=== PATIENT | female | born 1985 | race Caucasian/White ===

== ENCOUNTER 2017-08-10 03:30 | Inpatient (IN) | payer MEDICAID, SELFPAY ==
--- NOTE | 2017-08-09 15:45 | PLAC_PTH ---
PATIENT: YANDEL ZHAO LOC: [facility] U#:[id number] AGE/SX: 32/F ROOM: 003 RE08/10/[address]: Dr. Sylvia Cortes, MDDOB: 1985 BED: 1 DIS: 08/12/2017 SPEC #: [id number] RECD: 08/10/17 09:20 STATUS: TONE LUZ #: [id number] KENJI: 08/09/17 15:[address]: Sylvia Cortes DEPT: SURGICAL PATHOLOGY RECD BY: Dimitris Ramos ENTERED: 08/12/17 09:16 SP TYPE: PLACENTA OTHR DR: No Primary Care Phys Tissues: Placenta, NOS Procedures: Surgery Specimen Level V HEADER OPERATION: Vaginal delivery PRE-OP DIAGNOSIS: Precipitous , rule out placental abruption TISSUE SUBMITTED: Placenta MICROSCOPIC DIAGNOSIS Herrera placenta (590 gm): Umbilical cord ? trivascular with early acute funisitis. Placental membranes ? acute chorioamnionitis and acute deciduitis. Placental disc ? increased intraparenchymal fibrin plaques and microcalcifications and Shayne-Gamal change. AM:keila 08/13/17 MICROSCOPIC DESCRIPTION Slides are reviewed. GROSS DESCRIPTION SPECIMEN: PLACENTA / CLINICAL INFORMATION: A. Weight: 2.953 kg B. Gestational Age: 37 weeks C. Sex: Female PLACENTAL WEIGHT (POST FIXATION): 590 gm PLACENTAL DIMENSIONS: 22 x 15 x 3 cm PLACENTAL SHAPE: Usual ovoid PLACENTAL WEIGHT FOR GESTATIONAL AGE: Within 10-99th percentile MEMBRANES - Present A. Insertion: Marginal B. Site of rupture from edge: At edge of placental disc C. Color of membrane: Vásquez-busby D. Abnormalities: None UMBILICAL CORD ? Present, received in two fragments A. Color: Vásquez-busby B. Insertion: Marginal C. Length: 34 cm D. Diameter: 1.5 cm E. Number of vessels: Three F. Abnormalities: None PLACENTAL DISC - Present A. Color of surface: Vásquez-busby B. surface abnormalities: None C. Maternal cotyledons: Intact with minimal tears D. Attached retro placental clot: No clot E. Cut surface: Dark red and spongy F. Lesions: None G. Separate clot: Absent SECTIONS SUBMITTED: 1. Membrane roll and umbilical cord ( end notched) 2. Placental disc, and maternal surfaces 3. Placental disc, and maternal surfaces 4. Placental disc, and maternal surfaces AM:keila 08/12/17 TC:2 CPT: 91265
[2017-08-09 22:44] VITALS: BMI 31.2
[2017-08-09 23:15] LABS: Mucous, Urine 0 SEEN /hpf (<or=2+)
[2017-08-09 23:17] LABS: Color, Urine SEE COMMENT BELOW (Yellow); Glucose, Dipstick Normal (Normal); Ketone-Dipstick Negative (Negative); Leukocyte Esterase-Dipstick 500 /ul (Negative); Nitrite-Dipstick Negative (Negative); Occult Blood-Urine 250 /ul (Negative); Protein-Dipstick 30 mg/dl (Negative); Urine Bilirubin Dipstick Negative (Negative); Urine Clarity Cloudy (Clear); Urine Urobilinogen Normal (Normal)
[2017-08-09 23:26] LABS: Bacteria 1+ /hpf (None Seen); Red Blood Cells-Urine > 100 SEEN /hpf (0-5); Squamous Epithelial Cells - UA 0-5 SEEN /hpf (5-10); White Blood Cells 25-50 SEEN /hpf (0-5)
[2017-08-10] MEDS: Lactated Ringers 1,000 ML 50 ML IV (00:05)
--- NOTE | 2017-08-10 00:17 | PCM.HP.OB ---
- Problem List (1) Term Status: Acute (2) Hematuria Status: Acute Qualifiers: Hematuria type: other microscopic Qualified Code(s): R31.29 - Other microscopic hematuria; R31.2 - Other microscopic hematuria (3) UTI (urinary tract infection) during Status: Acute Qualifiers: Trimester: third trimester Qualified Code(s): O23.43 - Unspecified infection of urinary tract in , third trimester (4) EARLY LABOR Status: Ruled-out History Date of Admission: 08/10/17 Final CARTER: 08/25/17 Final CARTER Source: LMP Gestational age: 37 Weeks and 6 Days History of this : See [facility] record Patient called reporting generalized abdominal cramping and pain this evening, not easily timeable and not constant. Patient denies LOF, denies DFM. On admission ctx q 1-3 minutes noted mildly palpable, irregular and short. UA sent that showed ++ blood, leukocytes and bacteria in urine. Pertinent Past Medical History: See [facility] record Allergies azithromycin Allergy (Verified 08/09/17 22:50) Hives Penicillins Allergy (Verified 08/09/17 22:50) Hives sulfamethoxazole [From Bactrim] Allergy (Verified 08/09/17 22:50) Swelling trimethoprim [From Bactrim] Allergy (Verified 08/09/17 22:50) Swelling tramadol [From Ultram] Adverse Reaction (Verified 08/09/17 22:50) Vomiting Current Medications Acetaminophen (Tylenol) 1,000 mg PO Q8H PRN PRN PRN Reason: PAIN Clindamycin Phosphate (Cleocin) 900 mg in 50 mls @ 75 mls/hr IV Q8 RUDDY Smoking Status: Current some day smoker - Smokes 1-2 cigarettes Alcohol: None - currently Drug Use: none Number of Fetus(es): 1 Review of Systems Constitutional: Denies: Chills, Fever, Weight Change HEENT: Denies: Head Aches, Sinus Congestion, Sinus Drainage Cardiovascular: Denies: Chest Pain, Palpitations Respiratory: Denies: Cough, Shortness of breath at rest, Sputum production Gastrointestinal: Denies: Abdominal Pain, Nausea, Vomiting Genitourinary: Reports: Hematuria. Denies: Dysuria - Reports pelvic pressure Gynecological: Denies: Vaginal bleeding, Vaginal discharge Musculoskeletal: Denies: Joint Pain, Joint Tenderness Skin: Denies: Rash, Wounds Neurological: Denies: Numbness, Tingling, Focal weakness Psychiatric: Denies: Anxiety, Depression, Homicidal Ideations, Suicidal Ideations Hematologic/ Lymphatic: Denies: Easy Bruising, Easy Bleeding Physical Exam General: Alert, Oriented x3, No apparent distress Cardiovascular: Regular rate, Regular Rhythm Lungs: Clear to auscultation Abdomen: Bowel Sounds Present, Non-Distended - generalized abdominal tenderness and CVAT, soft abdomen noted, Gravid, Appropriate for Gestational Age Extremities:: No edema Estimated gestational size: Appropriate for gestational size Presentation: Cephalic Cervix Dilation (cm): 1 Station: -2 Effacement (%): 60 Assessment/Plan Active and Suspected Problems Term (Acute) Hematuria (Acute) UTI (urinary tract infection) during (Acute) 32 y/o @ 37.6 wks, Probable UTI, Rule out Early Labor P: 1) Start IV, give LR fluid bolus 500cc now. 2) CBC with diff and T+S, urine CCMS sent 3) Due to patient's allergies, start Clindamycin 900mg IV q 8 hours for presumptive UTI 4) PO Tylenol 1000mg q 8 hours PRN ordered for pain, if unresolved pain may give Nubain 10mg IV push q 3 hours PRN pending Category I FHT 5) Continuous EFM 6) Expectant management Leah Jorgensen CNM
[2017-08-10 00:28] LABS: Absolute Lymphocyte Count 1.24 X10^3/ul (0.83-4.51); Absolute Neutrophil Count 12.8 X10^3/uL (2.0-7.7); Basophil# 0.03 X10^3/uL; Basophil% 0.2 % (0-1); Eosinophil# 0.04 X10^3/uL; Eosinophils% 0.3 % (0-5); Hemoglobin 9.9 g/dl (12.0-15.0); Lymphocyte # 1.24 X10^3/ul (4.0); Mean Corpuscular Volume 81.7 fL (81-99); Mean Platelet Vol. 10.4 fl (6.2-12.0); Monocyte# 1.32 X10^3/uL; Monocyte% 8.5 % (0-10); Neutrophil # 12.78 X10^3/uL (2.7-7.7); Neutrophil % 82.7 % (47-70); Platelet Count 214 K/mm3 (150-450); RBC Distribution Width CV 14.9 % (11.6-14.6); RBC Distribution Width SD 43.4 fl (35.1-43.9); Red Blood Count 3.67 M/mm3 (4.2-5.4); White Blood Count 15.5 K/mm3 (4.4-11.0)
[2017-08-10 00:31] LABS: POSITIVE COUNT NO; POSITIVE DIFFERENTIAL NO; POSITIVE MORPHOLOGY NO
[2017-08-10] MEDS: Clindamycin 900 MG/50 ML BAG 75 MG IV (00:41)
[2017-08-10] MEDS: Nalbuphine 10 MG/ML Ampul IV (01:09)
--- NOTE | 2017-08-10 02:09 | OB.TRI.PN ---
Progress Notes Date of Service: 08/10/17 Progress Note: Notification from [place] that patient is more comfortable after Nubain 10mg IV push was administered, patient resting now and reporting that ctx have spaced out. First dose of Clindamycin 900mg IV x 1 hung and infusing. Patient family continues to be at bedside providing support. Nursing staff rechecked patient's cervix, found to be 2/90/-2. Category I FHT noted. VSS, patient is Afebrile. WBC = 15, remainder of bloodwork returned thus far in normal limits. Will continue to watch patient closely, if continued cervical change noted and patient becomes >3cm dilated, anticipate to admit patient for labor. Reassess cervix PRN with change in maternal or status. Leah Jorgensen CNM
[2017-08-10] MEDS: Oxytocin 30 units/NS 500 ml 30 UNITS/500 ML IV.SOLN 334 UNITS IV (03:53)
[2017-08-10] MEDS: Oxytocin 30 units/NS 500 ml 30 UNITS/500 ML IV.SOLN 167 UNITS IV (04:23)
--- NOTE | 2017-08-10 04:27 | PCM.OB.VAG ---
- Problem List (1) Term Status: Resolved (2) Hematuria Status: Acute Qualifiers: Hematuria type: other microscopic Qualified Code(s): R31.29 - Other microscopic hematuria; R31.2 - Other microscopic hematuria (3) UTI (urinary tract infection) during Status: Acute Qualifiers: Trimester: third trimester Qualified Code(s): O23.43 - Unspecified infection of urinary tract in , third trimester (4) EARLY LABOR Status: Resolved Vaginal Delivery Maternal Presentation: Active Labor Amniotic Membrane Rupture Type: Spontaneous - Likely occured when patient was in shower, precipitous change from 2cm to 10cm and pushing Amniotic Fluid Description: Clear Final CARTER: 08/25/17 Gestational age: 37 Weeks and 6 Days Date of Procedure: 08/10/17 Pre-Operative Diagnosis: Hematuria with Uterine Irritability d/t presumptive UTI, Early Labor Post-Operative Diagnosis: Precipitous Vaginal Delivery Surgery/ Procedure Performed: Spontaneous Vaginal Delivery Type of Anesthesia: None, Local with 1% lidocaine - For repair afterward Description of Procedure: Patient reported increase in discomfort, reassessment of cervix by nursing staff yielded similar SVE = 2/90/-2. Patient then entered shower and soon after started bearing down. Patient found to be C/C/+1 station. Patient started bearing down strongly with urge. Patient pushed well to over 1st degree lacerated perineum at 0345. initially with a slow cry and respirations, infant dried and stimulated on maternal chest. Mouth and nose bulb suctioned. then started crying a breathing on own at 1 minute. Umbilical cord clamped and cut by FOB by 1 minute of life as the cord stopped pulsing. By 2-3 minutes of life, apneic episode noted in the and baby taken to warmer for assessment and modern languages professor called to room. Cord gases sent. Infant in stable condition now, pulse ox at 100. Apgars assigned per modern languages professor and nursing staff. Placenta delivered spontaneously with maternal effort via Reeder mechanism, intact with 3VC. Placenta to pathology for evaluation d/t precipitous . FF midline @ umbilicus. Pitocin IV per protocol for active management of 3rd stage utilized. EBL = 350 cc. Upon inspection of vaginal vault, 1st degree perineal laceration noted. Repaired in the usual fashion using 3-0 Rapide suture and 1% Lidocaine. Sponge and needle count correct. Baby to breast, bonding and [id number] initiated. Leah Jorgensen CNM Presentation: Vertex, HARLEY Placental Delivery Description: Spontaneous Placenta Disposition: Routine to Lab Cord Vessel Description: 3 Vessels Nuchal Cord Compression: Without compression Cord Gases drawn per routine: ABG, VBG Cord Entanglement: Around neck x 1, loose Estimated Blood Loss: 350 A gender: Female Episiotomy Description: None Laceration: Midline, Perineal Extension/lac, 1st degree Medications given after delivery: IV Pitocin Complications: None
--- NOTE | 2017-08-10 04:44 | OP.PCM_ITS ---
- Problem List (1) Term Status: Resolved (2) Hematuria Status: Acute Qualifiers: Hematuria type: other microscopic Qualified Code(s): R31.29 - Other microscopic hematuria; R31.2 - Other microscopic hematuria (3) UTI (urinary tract infection) during Status: Acute Qualifiers: Trimester: third trimester Qualified Code(s): O23.43 - Unspecified infection of urinary tract in , third trimester (4) EARLY LABOR Status: Resolved Vaginal Delivery Maternal Presentation: Active Labor Amniotic Membrane Rupture Type: Spontaneous - Likely occured when patient was in shower, precipitous change from 2cm to 10cm and pushing Amniotic Fluid Description: Clear Final CARTER: 08/25/17 Gestational age: 37 Weeks and 6 Days Date of Procedure: 08/10/17 Pre-Operative Diagnosis: Hematuria with Uterine Irritability d/t presumptive UTI , Early Labor Post-Operative Diagnosis: Precipitous Vaginal Delivery Surgery/ Procedure Performed: Spontaneous Vaginal Delivery Type of Anesthesia: None, Local with 1% lidocaine - For repair afterward Description of Procedure: Patient reported increase in discomfort, reassessment of cervix by nursing staff yielded similar SVE = 2/90/-2. Patient then entered shower and soon after started bearing down. Patient found to be C/C/+1 station. Patient started bearing down strongly with urge. Patient pushed well to over 1st degree lacerated perineum at 0345. initially with a slow cry and respirations, dried and stimulated on maternal chest. Mouth and nose bulb suctioned. then started crying a breathing on own at 1 minute. Umbilical cord clamped and cut by FOB by 1 minute of life as the cord stopped pulsing. By 2-3 minutes of life, apneic episode noted in the and baby taken to warmer for assessment and lead mobile developer called to room. Cord gases sent. Infant in stable condition now, pulse ox at 100. Apgars assigned per lead mobile developer and nursing staff. Placenta delivered spontaneously with maternal effort via Reeder mechanism, intact with 3VC. Placenta to pathology for evaluation d/t precipitous . FF midline @ umbilicus. Pitocin IV per protocol for active management of 3rd stage utilized. EBL = 350 cc. Upon inspection of vaginal vault , 1st degree perineal laceration noted. Repaired in the usual fashion using 3-0 Rapide suture and 1% Lidocaine. Sponge and needle count correct. Baby to breast , bonding and [id number] initiated. Leah Jorgensen CNM Presentation: Vertex, HARLEY Placental Delivery Description: Spontaneous Placenta Disposition: Routine to Lab Cord Vessel Description: 3 Vessels Nuchal Cord Compression: Without compression Cord Gases drawn per routine: ABG, VBG Cord Entanglement: Around neck x 1, loose Estimated Blood Loss: 350 Infant A gender: Female Episiotomy Description: None Laceration: Midline, Perineal Extension/lac, 1st degree Medications given after delivery: IV Pitocin Complications: None
[2017-08-10 08:20] VITALS: BP 135/77; PULSE 122; RESP 18; TEMP 37.3; O2SAT 98
[2017-08-10] MEDS: Ciprofloxacin 500 MG Tablet PO ×2 (09:11→21:23)
[2017-08-10] MEDS: 0.9% Saline Lock 10 ML Syringe IV (09:13)
[2017-08-10] MEDS: Ibuprofen 600 MG Tablet PO ×2 (09:51→21:30)
[2017-08-10 10:51] LABS: Amphetamine Urine VISTA NEGATIVE (<1000 ng/mL); Barbiturate Urine VISTA NEGATIVE (< 200 ng/mL); Benzodiazepine Urine VISTA NEGATIVE (< 200 ng/mL); Cocaine Urine VISTA NEGATIVE (< 300 ng/mL); Ecstacy Urine VISTA NEGATIVE (< 500 ng/mL); Methadone Urine VISTA NEGATIVE (< 300 ng/mL); PCP Urine VISTA NEGATIVE (< 25 ng/mL); THC Urine VISTA NEGATIVE (< 50 ng/mL); Vista UDS pH Range 6
[2017-08-10 12:20] VITALS: BP 133/67; PULSE 115; RESP 18; TEMP 36.7; O2SAT 97
[2017-08-10 15:45] VITALS: BP 130/80; PULSE 118; RESP 18; TEMP 37; O2SAT 98
[2017-08-10 21:24] VITALS: BP 145/80; PULSE 120; RESP 16; TEMP 36.9; O2SAT 99
[2017-08-11 00:30] VITALS: BP 117/74; PULSE 100; RESP 16; TEMP 36.6
[2017-08-11 04:40] VITALS: BP 117/78; PULSE 92; RESP 16; TEMP 36.8
[2017-08-11 05:00] LABS: Hematocrit 26.3 % (37-47); Hemoglobin 8.6 g/dl (12.0-15.0); Mean Corp Hgb Conc 32.7 g/gl (32-36); Mean Corpuscular Hgb 27.3 pg (27.0-32.0); Mean Corpuscular Volume 83.5 fL (81-99); Mean Platelet Vol. 10.1 fl (6.2-12.0); Platelet Count 219 K/mm3 (150-450); RBC Distribution Width SD 44.8 fl (35.1-43.9); Red Blood Count 3.15 M/mm3 (4.2-5.4)
[2017-08-11 05:05] LABS: Scan Indicated on CBC? Y/N NO
--- NOTE | 2017-08-11 09:04 | PCM.DCVAG ---
Discharge Diet: No Restrictions Discharge Activity: Return to Normal Activity May resume sexual activity in: 4-6 weeks Lifting Restrictions: No lifting anything more than the baby Call your doctor if you observe: Fever of 101 or Higher, Inability to urinate, Inability to have a bowel movement, Using more than one pad per hour, Uncontrolled pain Additional Instructions: If you experience any of the following, contact your healthcare provider. Bleeding that soaks a pad every hour for 2 hours Fever 100.4 or higher Unrelieved incision or abdominal pain Swelling, redness, discharge or bleeding from your incision or episiotomy site Your incision begins to separate Problems urinating (including inability to urinate or burning while urinating). Visual changes Severe headache Flu-like symptoms Pain or redness in one of both of your breasts Pain, warmth, tenderness or swelling in your legs, especially the calf area Frequent nausea and vomiting Symptoms of depression or anxiety If you experience any of the following, call 911 or go to the nearest Emergency Room. Chest pain Problems breathing Seizure activity Partial or complete paralysis of a body part, slurred speech, weakness or drooping of the face, or a sudden inability to walk or hold your balance Allergies/Adverse Reactions: Allergies azithromycin Allergy (Verified 08/09/17 22:50) Hives Penicillins Allergy (Verified 08/09/17 22:50) Hives sulfamethoxazole [From Bactrim] Allergy (Verified 08/09/17 22:50) Swelling trimethoprim [From Bactrim] Allergy (Verified 08/09/17 22:50) Swelling tramadol [From Ultram] Adverse Reaction (Verified 08/09/17 22:50) Vomiting Medications to take at Discharge Vits [Prenatabs FA] 1 tablet PO DAILY 02/02/17 Ciprofloxacin HCl 500 mg PO BID 1 Days #2 tab 08/11/17 Primary Care Physician: Care Physician,No Primary [Primary Care Provider] - Proposed Discharge Date: 08/12/17
--- NOTE | 2017-08-11 09:13 | DCINST_ITS ---
Discharge Diet: No Restrictions Discharge Activity: Return to Normal Activity May resume sexual activity in: 4-6 weeks Lifting Restrictions: No lifting anything more than the baby Call your doctor if you observe: Fever of 101 or Higher, Inability to urinate, Inability to have a bowel movement, Using more than one pad per hour, Uncontrolled pain Additional Instructions: If you experience any of the following, contact your healthcare provider. * Bleeding that soaks a pad every hour for 2 hours * Fever 100.4 or higher * Unrelieved incision or abdominal pain * Swelling, redness, discharge or bleeding from your incision or episiotomy site * Your incision begins to separate * Problems urinating (including inability to urinate or burning while urinating) . * Visual changes * Severe headache * Flu-like symptoms * Pain or redness in one of both of your breasts * Pain, warmth, tenderness or swelling in your legs, especially the calf area * Frequent nausea and vomiting * Symptoms of depression or anxiety If you experience any of the following, call 911 or go to the nearest Emergency Room. * Chest pain * Problems breathing * Seizure activity * Partial or complete paralysis of a body part, slurred speech, weakness or drooping of the face, or a sudden inability to walk or hold your balance Allergies/Adverse Reactions: Allergies azithromycin Allergy (Verified 08/09/17 22:50) Hives Penicillins Allergy (Verified 08/09/17 22:50) Hives sulfamethoxazole [From Bactrim] Allergy (Verified 08/09/17 22:50) Swelling trimethoprim [From Bactrim] Allergy (Verified 08/09/17 22:50) Swelling tramadol [From Ultram] Adverse Reaction (Verified 08/09/17 22:50) Vomiting Medications to take at Discharge Vits [Prenatabs FA] 1 tablet PO DAILY 02/02/17 Ciprofloxacin HCl 500 mg PO BID 1 Days #2 tab 08/11/17 Primary Care Physician: Care Physician,No Primary [Primary Care Provider] - Proposed Discharge Date: 08/12/17
[2017-08-11 09:15] VITALS: BP 130/79; PULSE 75; RESP 16; TEMP 36.5; O2SAT 100
--- NOTE | 2017-08-11 09:16 | PCM.PN.BLA ---
Progress Note S: admitted to [facility] overnight for bililights for jaundice. Patient and FOB at [facility] bedside. Patient denies any physical issues at this time. Reports that she is not having issues using restroom or with ambulation. Patient denies any urinary issues anymore, she is on day 2 of Cipro prescription for presumed UTI. Urine culture is still pending. Patient reports bleeding is subsiding. O: VSS, Afebrile; Hgb = 8.6, WBC = 15 Nipples without cracks or blisters, no ecchymoses noted Abdomen NT x 4 quadrants, FF midline 2FB below umbilicus +2/4 reflexes in LE, no edema, negative calf tenderness to palpation scant rubra lochia, perineum well approximated A: 32 y/o G1, now P1; PPD #1 s/p precipitous , Normal Course P: 1) Continue treatment for presumptive UTI, Cipro Hcl 500mg PO BID x 3 days total 2) Continue PP orders, encourage pumping of breastmilk if baby unable to latch 3) Anticipate discharge to home tomorrow, consider hospitality room if baby does not get discharge tomorrow Leah Jorgensen CNM
[2017-08-11] MEDS: Ciprofloxacin 500 MG Tablet PO ×2 (09:21→21:57)
--- NOTE | 2017-08-11 09:21 | PN_ITS ---
Progress Note S: admitted to [facility] overnight for bililights for jaundice. Patient and FOB at [facility] bedside. Patient denies any physical issues at this time. Reports that she is not having issues using restroom or with ambulation. Patient denies any urinary issues anymore, she is on day 2 of Cipro prescription for presumed UTI. Urine culture is still pending. Patient reports bleeding is subsiding. O: VSS, Afebrile; Hgb = 8.6, WBC = 15 Nipples without cracks or blisters, no ecchymoses noted Abdomen NT x 4 quadrants, FF midline 2FB below umbilicus +2/4 reflexes in LE, no edema, negative calf tenderness to palpation scant rubra lochia, perineum well approximated A: 32 y/o G1, now P1; PPD #1 s/p precipitous , Normal Course P: 1) Continue treatment for presumptive UTI, Cipro Hcl 500mg PO BID x 3 days total 2) Continue PP orders, encourage pumping of breastmilk if baby unable to latch 3) Anticipate discharge to home tomorrow, consider hospitality room if baby does not get discharge tomorrow Leah Jorgensen CNM
[2017-08-11 13:13] VITALS: BP 120/79; PULSE 105; RESP 16; TEMP 36.7; O2SAT 98
[2017-08-11 22:00] VITALS: BP 125/57; PULSE 88; RESP 16; TEMP 37.2
[2017-08-12 03:30] VITALS: BP 118/75; PULSE 88; RESP 16; TEMP 36.7
[2017-08-12 07:30] VITALS: BP 121/76; PULSE 104; RESP 18; TEMP 36.7; O2SAT 99
[2017-08-12] MEDS: Ciprofloxacin 500 MG Tablet PO (09:33)
--- NOTE | 2017-08-12 10:04 | PCM.PN.OB ---
Patient Problems: Active and Suspected Problems Hematuria (Acute) UTI (urinary tract infection) during (Acute) Subjective: pain well controlled, average lochia. Some cramping. Upset about baby, concerned - Physical Exam General: Alert, Cooperative, No apparent distress Vital Signs Temp Pulse Resp BP Pulse Ox 98.1 F 104 H 18 121/76 H 99 08/12/17 07:30 08/12/17 07:30 08/12/17 07:30 08/12/17 07:30 08/12/17 07:30 Oxygen Delivery Method Room Air Weight: 87.9 kg Body Mass Index (BMI) 31.2 Intake and Output for Last 24 Hours 08/10/17 08/11/17 08/12/17 23:59 23:59 23:59 Output Total 700 / 700 Balance -700 / -700 Microbiology Past 72 Hours 08/09/17 23:00 Urine Culture - Final Urine, Clean Catch Mixed Gram Positive Organisms Assessment/Plan Active and Suspected Problems Hematuria (Acute) UTI (urinary tract infection) during (Acute) PPD#2 doing well working on pumping w/ bilious vomiting, to [facility] for eval
[2017-08-15 12:22] LABS: Pathology Specimen OB SEE PATHOLOGY REPORT
== END 2017-08-12 10:50 | disposition home or self-care (01) | DRG 373 ==
LOC: WPOUT 03:30
PROVIDERS: Advanced Practice Midwife; Admitting Provider Obstetrics & Gynecology; Visit Provider Obstetrics & Gynecology
DX: O42.02 Full-term premature rupture of membranes, onset of labor within 24 hours of rupture (principal); O41.1230 Chorioamnionitis, third trimester, not applicable or unspecified; O41.1430 Placentitis, third trimester, not applicable or unspecified; O23.43 Unspecified infection of urinary tract in pregnancy, third trimester; O62.3 Precipitate labor; O69.81X0 Labor and delivery complicated by cord around neck, without compression, not applicable or unspecified; O70.0 First degree perineal laceration during delivery; O26.893 Other specified pregnancy related conditions, third trimester; R10.84 Generalized abdominal pain; O99.334 Smoking (tobacco) complicating childbirth; F17.210 Nicotine dependence, cigarettes, uncomplicated; Z37.0 Single live birth; Z3A.37 37 weeks gestation of pregnancy
CPT/HCPCS: 59050; 80307; 81001; 85025; 85027; 85461; 86850; 86900; 87086; 87088; 88307; 90384; 99218; J7120; A4216; G0378; J2790

== ENCOUNTER 2017-10-17 10:03 | Day surgery (SDC) | payer MEDICAID, SELFPAY ==
--- NOTE | 2017-10-17 | FALS_PTH ---
PATIENT: YANDEL ZHAO [place] [facility] [id number] AGE/SX: 32/F ROOM: RE10/17/[address]: Dr. Sylvia Cortes, MDDOB: 1985 BED: DIS: 10/17/2017 SPEC #: [id number] RECD: 10/17/17 14:11 STATUS: TONE LUZ #: [id number] KENJI: 10/17/17 00:[address]: Sylvia Cortes DEPT: SURGICAL PATHOLOGY RECD BY: Dimitris Ramos ENTERED: 10/17/17 14:11 SP TYPE: FALL TUBES OTHR DR: No Primary Care Phys Tissues: Fallopian tube Procedures: Surgery Specimen Level II HEADER OPERATION: Laparoscopic salpingectomy PRE-OP DIAGNOSIS: Request for sterilization TISSUE SUBMITTED: Bilateral fallopian tubes MICROSCOPIC DIAGNOSIS Bilateral fallopian tubes, bilateral salpingectomy: Bilateral fallopian tubes including fimbrial ends, no pathologic diagnosis. A piece of adipose tissue adjacent to the fallopian tube with focal fat necrosis. NEPTALI:keila 10/18/17 MICROSCOPIC DESCRIPTION Slides are reviewed. GROSS DESCRIPTION Received is one container labeled with the patient's name and designated bilateral fallopian tubes. The specimen consists of bilateral fallopian tubes including fimbrial ends. The fallopian tubes are not identified as right or left. One fallopian tube measures 5 cm in length and 0.5 cm in diameter. Sections reveal unremarkable cut surfaces. The second fallopian tube measures 4 cm in length and 0.5 cm in diameter. Sections reveal unremarkable cut surfaces. A small detached piece of fallopian tube is also noted measuring 1.5 cm in length and 0.5 cm in diameter. This piece is inked black. Manager Materials Management sections are submitted in two cassettes as follows: 1 ? one fallopian tube, 2 ? second fallopian tube and detached piece of fallopian tube. / NEPTALI:keila 10/17/17 TC:5 CPT: 20821 x2
[2017-10-17 10:32] LABS: Internal QC Validated? YES +Cl - CLEAR BKGD; Pregnancy, Urine Negative Negative
[2017-10-17 10:35] LABS: Hemoglobin 11.4 g/dl (12.0-15.0); Mean Corp Hgb Conc 32.6 g/gl (32-36); Mean Corpuscular Hgb 25.4 pg (27.0-32.0); Mean Corpuscular Volume 78.1 fL (81-99); Mean Platelet Vol. 10.1 fl (6.2-12.0); Platelet Count 266 K/mm3 (150-450); RBC Distribution Width CV 14.2 % (11.6-14.6); RBC Distribution Width SD 39.6 fl (35.1-43.9); Red Blood Count 4.48 M/mm3 (4.2-5.4); Scan Indicated on CBC? Y/N NO; White Blood Count 5.8 K/mm3 (4.4-11.0)
[2017-10-17 10:43] LABS: Partial Thromboplast Time 30.8 Seconds (24.1-36.2); Prothrombin Time (Protime)PT. 12.8 SECONDS (11.7-14.9)
[2017-10-17 10:47] VITALS: BP 122/81; PULSE 75; RESP 16; TEMP 37.1; O2SAT 99; BMI 29.4
[2017-10-17 10:51] LABS: AST(SGOT) 21 U/L (15-37); Alanine Aminotransfer ALT/SGPT 39 U/L (13-56); Albumin, Serum 3.6 g/dL (3.2-5.0); Alkaline Phosphatase 125 U/L (45-117); Bilirubin, Direct 0.12 mg/dL (0.00-0.30); Globulin 3.9 g/dL (2.2-4.2); Protein, Total 7.5 g/dL (6.4-8.2)
[2017-10-17] MEDS: Bupivacaine Mpf 0.5% 30 ML VIAL (13:30)
--- NOTE | 2017-10-17 13:56 | OP.PCM_ITS ---
Operative Report Date of Procedure: 10/17/17 Surgeon: Dr. Sylvia Cortes Process Development Technician: Rajni Bueno MS 3 Preoperative diagnosis: Sterilization request Procedure performed: Laparoscopic bilateral salpingectomy Postoperative diagnosis: Sterilization request complications: None Estimated blood loss: 15cc Drains: none Specimens collected: Bilateral tubes Findings: Normal tubes and ovaries bilaterally uterus sounded to approximately 8 cm. cervical stitch placed for hemostasis from tenaculum. Operative note: After informed consent was obtained patient was taken to the operating room she was placed in supine position she was given anesthesia. She was then placed in the [facility] stirrups and she was prepped and draped in normal sterile fashion. Bladder was drained prior to the start of procedure approximately 200cc of clear yellow urine was expelled. At this time attention was turned to the vaginal portion where weighted speculum placed at posterior fornix vagina single-tooth tenaculum was used to gently grasp the internal the cervix. uterus was gently sounded to approximately 8 cm. gentle dilation of cervix performed. Uterine manipulator was placed without difficulty. Legs then placed in parallel with the abdomen the tenaculum and the weighted speculum were removed. 2 towel clamps were placed superior to umbilicus. After Marcaine was injected in umbilicus a small incision was made and a 5 mm trocar was placed under direct visualization. CO2 gas was used to insufflate the intra-abdominal cavity. Upon inspection no gross abnormalities]uterus tubes and ovaries appeared to be normal. At this time then the LLQ port was placed again Marcaine was injected small incision was made a knife and the 5 mm trocar was placed. Alligator clamp was then placed suprapubically. At this time then tubes were traced back to the fimbriated ends. Ligasure was used to coagulate and ligate along mesosalpynx bilaterally until tubes removed completely. Good hemostasis was appreciated. At this time procedure was deemed complete successful. The gas was desufflated on from the intra-abdominal cavity. The trochars were removed. Skin was closed using 4-0 Monocryl in a subcutaneous fashion. Dermabond glue was placed. Instrument lap and needle counts were correct ?2. The uterine manipulator was removed. bleeding from tenaculum site on cervix- 2-0 vicryl figure of eight suture placed for hemostasis. Vaginal sweep was performed it was negative. There were no complications anticipated normal postoperative course for this patient.
--- NOTE | 2017-10-17 13:56 | PCM.DC ---
You will use the following diet at home:: No restrictions Discharge Activity: Return to Normal Activity, May not drive while taking narcotic pain medications., May Shower May shower in (days): 1 May resume sexual activity in: 2 weeks Lifting Restrictions: 20 Call your doctor if your incision/area has: Continuous Slow Oozing, Sudden Increased Bleeding, Increased Pain/ Swelling, Increased Redness, Foul Smelling Discharge, Swelling at the incision site Call your doctor if you observe: Fever of 101 or Higher, Using more than one pad per hour, Uncontrolled pain Cleanse incision/area with: Soap & Water, - - let soap and water run over incision sites and dab dry. Do not pick of skin glue Allergies/Adverse Reactions: Allergies azithromycin Allergy (Verified 10/10/17 10:08) Hives Penicillins Allergy (Verified 10/10/17 10:08) Hives sulfamethoxazole [From Bactrim] Allergy (Verified 10/10/17 10:08) Swelling trimethoprim [From Bactrim] Allergy (Verified 10/10/17 10:08) Swelling tramadol [From Ultram] Adverse Reaction (Verified 10/10/17 10:08) Vomiting Medications to take at Discharge Loratadine [Claritin] 10 mg PO PRN PRN 10/10/17 Primary Care Physician: Care Physician,No Primary [Primary Care Provider] - Please Follow Up With: Sylvia Cortes MD When: as scheduled in 2 weeks
[2017-10-17 14:06] VITALS: BP 122/81; BP 123/72; PULSE 78; RESP 16; TEMP 36.2; O2SAT 94
[2017-10-17 14:15] VITALS: BP 122/81; BP 144/80; PULSE 69; RESP 14; O2SAT 95
[2017-10-17 14:30] VITALS: BP 122/81; BP 133/68; PULSE 70; RESP 16; O2SAT 95
[2017-10-17 14:45] VITALS: BP 119/76; BP 122/81; PULSE 70; RESP 16; TEMP 36.4; O2SAT 93
[2017-10-17 15:13] VITALS: BP 122/81
== END 2017-10-17 15:15 | disposition home or self-care (01) ==
LOC: SDC 10:04 → AC 10:06
PROVIDERS: Anesthesiology; Visit Provider Obstetrics & Gynecology
PROC: (CPT 58661; principal; 2017-10-17 11:50)
DX: Z30.2 Encounter for sterilization (principal); D64.9 Anemia, unspecified; J30.89 Other allergic rhinitis; F17.210 Nicotine dependence, cigarettes, uncomplicated
CPT/HCPCS: 58661; 80076; 81025; 85027; 85610; 85730; 88302; J7120; J2405